=== PATIENT | female | born 1990 | race Hispanic/Latino ===

== ENCOUNTER 2018-01-03 16:54 | Emergency (ER) | payer BC, OTHER ==
[2018-01-03] MEDS ORDERED: ACETAMINOPHEN EXTRA STRENGTH 500 MG TABLET ONE (17:43)
== END 2018-01-03 17:58 | disposition home or self-care (01) ==
LOC: EDH 16:54
DX: S20.222A Contusion of left back wall of thorax, initial encounter (principal); S40.012A Contusion of left shoulder, initial encounter; S40.011A Contusion of right shoulder, initial encounter; S60.051A Contusion of right little finger without damage to nail, initial encounter; F12.10 Cannabis abuse, uncomplicated; F43.10 Post-traumatic stress disorder, unspecified; Z72.0 Tobacco use; Z91.018 Allergy to other foods; Z91.013 Allergy to seafood; Y35.893A Legal intervention involving other specified means, suspect injured, initial encounter; Y93.89 Activity, other specified; Y92.89 Other specified places as the place of occurrence of the external cause; Y99.8 Other external cause status